=== PATIENT | female | born 1955 | race Asian ===

== ENCOUNTER 2019-07-24 18:21 | Emergency (ER) | payer OTHER ==
[~2019-07-24] VITALS: Ht 160 cm; Wt 57.2 kg
[2019-07-24 18:28] VITALS: Ht 160 cm; Wt 57.2 kg
[2019-07-24 19:15] LABS: BASOPHIL % 0.4 % (0-2); PLATELET COUNT 183 x10^3mcL (130-400); RED CELL DISTRIBUTION WIDTH 13.2 % (11.5-14.5)
[2019-07-24 19:26] LABS: CALCIUM 8.3 mg/dL (8.5-10.1); CARBON DIOXIDE 24.3 mmol/L (21-32); CHLORIDE SERUM 106 mmol/L (98-107); CREATININE SERUM 0.8 mg/dL (0.6-1.0); GFR1 > 60 mL/min; GLUCOSE SERUM 147 mg/dL (74-106); POTASSIUM SERUM 3.7 mmol/L (3.5-5.1); SODIUM SERUM 142 mmol/L (136-145)
[2019-07-24 19:31] LABS: ALBUMIN 3.7 g/dL (3.4-5.0); ALKALINE PHOSPHATASE 86 U/L (46-116); ALT/SGPT 22 U/L (14-59); AST/SGOT 18 U/L (15-37); BILIRUBIN TOTAL 0.7 mg/dL (0.20-1.00); TOTAL PROTEIN, SERUM 7.3 g/dL (6.4-8.2)
[2019-07-24 21:35] VITALS: BP 140/77
== END 2019-07-24 21:35 | disposition home or self-care (01) ==
LOC: ED 18:21
PROVIDERS: Emergency Medicine
DX: R91.8 Other nonspecific abnormal finding of lung field (principal); R05 Cough; R50.9 Fever, unspecified; R09.89 Other specified symptoms and signs involving the circulatory and respiratory systems; R51 Headache; H92.03 Otalgia, bilateral; J02.9 Acute pharyngitis, unspecified; I10 Essential (primary) hypertension
CPT/HCPCS: 36415

== ENCOUNTER 2019-11-07 16:01 | Emergency (ER) | payer OTHER, MEDICARE ==
[~2019-11-07] VITALS: Ht 157.5 cm; Wt 58.5 kg
[2019-11-07 16:11] VITALS: BP 161/99; Ht 157.5 cm; Wt 58.5 kg
== END 2019-11-07 21:49 | disposition home or self-care (01) ==
LOC: ED 16:01
DX: Z13.89 Encounter for screening for other disorder (principal); I10 Essential (primary) hypertension